=== PATIENT | female | born 1965 | race Asian ===

== ENCOUNTER → 2024-08-15 13:04 | Outpatient (REF) | payer OTHER, SELFPAY | LOC: RCS 13:04 | PROVIDERS: ATTENDING PHYSICIAN Internal Medicine Cardiovascular Disease; FAMILY PHYSICIAN Family Medicine | DX: R00.2 Palpitations (principal) | CPT/HCPCS: 93017; 93350 ==

== ENCOUNTER → 2024-09-02 08:23 | Outpatient (REF) | payer OTHER, SELFPAY | LOC: RCS 08:23 | PROVIDERS: ATTENDING PHYSICIAN Internal Medicine Cardiovascular Disease; FAMILY PHYSICIAN Family Medicine | DX: R00.2 Palpitations (principal); I36.1 Nonrheumatic tricuspid (valve) insufficiency | CPT/HCPCS: 93306 ==